=== PATIENT | male | born 1990 | race Caucasian/White ===

== ENCOUNTER 2017-07-22 17:45 | Emergency (ER) | payer SELFPAY ==
[~2017-07-22] VITALS: Ht 175.3 cm; Wt 70.0 kg
[2017-07-22 18:31] VITALS: BP 125/73; PULSE 101; RESP 18; TEMP 98.7; O2SAT 100
[2017-07-22 18:41] LABS: BASOPHIL # 0.1 TH/MM3 (0-0.2); BASOPHIL % 0.8 % (0.0-2.0); BILIRUBIN, URINE NEG (NEG); BLOOD, URINE NEG (NEG); EOSINOPHIL # 0.2 TH/MM3 (0-0.4); EOSINOPHIL % 2.5 % (0.0-4.0); GLUCOSE,URINE NEG (NEG); HEMATOCRIT 50.6 % (39.0-51.0); HEMOGLOBIN 17.4 GM/DL (13.0-17.0); KETONE, URINE NEG (NEG); LYMPH % 27.8 % (9.0-44.0); LYMPHOCYTE # 1.9 TH/MM3 (1.0-4.8); MEAN CELL VOLUME 97.6 FL (80.0-100.0); MEAN CORPUSCULAR HEMOGLOBIN 33.5 PG (27.0-34.0); MEAN CORPUSCULAR HGB CONC 34.3 % (32.0-36.0); MEAN PLATELET VOLUME 8.2 FL (7.0-11.0); MONO % 9.4 % (0.0-8.0); MONOCYTE # 0.6 TH/MM3 (0-0.9); NEUT % 59.5 % (16.0-70.0); NITRITE,URINE NEG (NEG); PLATELET COUNT 196 TH/MM3 (150-450); RED BLOOD COUNT 5.18 MIL/MM3 (4.50-5.90); RED CELL DISTRIBUTION WIDTH 14.8 % (11.6-17.2); SQUAMOUS EPITHELIAL CELL URINE <1 /hpf (0-5); URINE COLOR COLORLESS (YELLW/STRAW); URINE LEUKOCYTE ESTERASE NEG (NEG); WHITE BLOOD COUNT 6.7 TH/MM3 (4.0-11.0)
[2017-07-22 18:51] LABS: PROTHROMBIN TIME - PATIENT 10.2 SEC (9.8-11.6)
--- NOTE | 2017-07-22 18:59 | PD ---
HPI Chief Complaint: Alcohol/Drug Intoxication Time Seen by Provider: 18:07 Travel History International Travel<30 days: No Contact w/Intl Traveler<30days: No History of Present Illness HPI 26-year-old male presents to the ED via EMS for evaluation of intoxication. EMS was called on scene by type bar and segment assembler who stated patient became belligerent. On arrival patient is alert, combative. He endorses drinking alcohol today, does not characterize the amount. He provides his father's phone number. He is unable/unwilling to provide any other meaningful history. PFSH Past Medical History ?: Not Social History Alcohol Use: Yes Tobacco Use: No Substance Use: No Review of Systems Except as stated in HPI: all other systems reviewed are Neg Physical Exam Exam Limitations: Intoxication Narrative GENERAL: Well-nourished, well-developed white male in no acute distress. SKIN: Focused skin assessment warm/dry. No outward signs of trauma. HEAD: Normocephalic. No tenderness to palpation of the skull bones. No raccoon eyes. No hemotympanum. EYES: No scleral icterus. No injection or drainage. NECK: Supple, trachea midline. No JVD or lymphadenopathy. No midline tenderness. CARDIOVASCULAR: Regular rate and rhythm without murmurs, gallops, or rubs. RESPIRATORY: Breath sounds clear and equal bilaterally. No accessory muscle use. GASTROINTESTINAL: Abdomen soft, non-tender, nondistended. Active bowel sounds. MUSCULOSKELETAL: No cyanosis, or edema. 5/5 strength in all extremities. Moves extremities spontaneously. BACK: Nontender without obvious deformity. No CVA tenderness. Data Data Last Documented VS Vital Signs Date Time Temp Pulse Resp B/P (MAP) Pulse Ox O2 Delivery O2 Flow Rate FiO2 07/22/17 19:25 104 17 110/64 (79) 94 Nasal Cannula 2.00 07/22/17 18:31 98.7 Orders Orders Alcohol (Ethanol) (07/22/17 18:06) Complete Blood Count With Diff (07/22/17 18:06) Comprehensive Metabolic Panel (07/22/17 18:06) Prothrombin Time / Inr (Pt) (07/22/17 18:06) Act Partial Throm Time (Ptt) (07/22/17 18:06) Urinalysis - C+S If Indicated (07/22/17 18:06) Restraints Non-Violent MARKY.Q3H (07/22/17 18:21) Oximetry (07/22/17 19:30) Labs Laboratory Tests Test 07/22/17 18:20 White Blood Count 6.7 TH/MM3 Red Blood Count 5.18 MIL/MM3 Hemoglobin 17.4 GM/DL Hematocrit 50.6 % Mean Corpuscular Volume 97.6 FL Mean Corpuscular Hemoglobin 33.5 PG Mean Corpuscular Hemoglobin Concent 34.3 % Red Cell Distribution Width 14.8 % Platelet Count 196 TH/MM3 Mean Platelet Volume 8.2 FL Neutrophils (%) (Auto) 59.5 % Lymphocytes (%) (Auto) 27.8 % Monocytes (%) (Auto) 9.4 % Eosinophils (%) (Auto) 2.5 % Basophils (%) (Auto) 0.8 % Neutrophils # (Auto) 4.0 TH/MM3 Lymphocytes # (Auto) 1.9 TH/MM3 Monocytes # (Auto) 0.6 TH/MM3 Eosinophils # (Auto) 0.2 TH/MM3 Basophils # (Auto) 0.1 TH/MM3 CBC Comment DIFF FINAL Differential Comment Prothrombin Time 10.2 SEC Prothromb Time International Ratio 1.0 RATIO Activated Partial Thromboplast Time 29.2 SEC Urine Color COLORLESS Urine Turbidity CLEAR Urine pH 6.0 Urine Specific [place] 1.001 Urine Protein NEG mg/dL Urine Glucose (UA) NEG mg/dL Urine Ketones NEG mg/dL Urine Occult Blood NEG Urine Nitrite NEG Urine Bilirubin NEG Urine Urobilinogen LESS THAN 2.0 MG/DL Urine Leukocyte Esterase NEG Urine RBC LESS THAN 1 /hpf Urine WBC LESS THAN 1 /hpf Urine Squamous Epithelial Cells <1 /hpf Microscopic Urinalysis Comment CULT NOT INDICATED Blood Urea Nitrogen 5 MG/DL Creatinine 0.75 MG/DL Random Glucose 92 MG/DL Total Protein 8.5 GM/DL Albumin 4.0 GM/DL Calcium Level 8.6 MG/DL Alkaline Phosphatase 130 U/L Aspartate Amino Transf (AST/SGOT) 48 U/L Alanine Aminotransferase (ALT/SGPT) 51 U/L Total Bilirubin 0.3 MG/DL Sodium Level 142 MEQ/L Potassium Level 3.2 MEQ/L Chloride Level 108 MEQ/L Carbon Dioxide Level 25.5 MEQ/L Anion Gap 9 MEQ/L Estimat Glomerular Filtration Rate 125 ML/MIN Ethyl Alcohol Level 430 MG/DL [facility] Medical Decision Making Medical Screen Exam Complete: Yes Emergency Medical Condition: Yes Differential Diagnosis Acute alcohol intoxication versus dehydration versus autonomic derangement versus alcohol abuse versus other Narrative Course 26-year-old male presents to the ED via EMS for evaluation of intoxication. EMS was called on scene by type bar and segment assembler who stated patient became belligerent. On arrival patient is alert, combative. He endorses drinking alcohol today, does not characterize the amount. He provides his father's phone number. He is unable/unwilling to provide any other meaningful history. Vitals reviewed. No outward signs of trauma on exam. Patient is definitely strong, flailing and fighting against evaluation. He was placed in soft restraints. I spoke with the patient's father by phone. He states that the patient was with his girlfriend today. Father is over an hour away in [place]. He is unable to retrieve the patient. Alcohol level 430. No concerning abnormalities CBC, CMP , UA. Patient will be monitored in the ED, reevaluated periodically throughout the night. He will be discharged when he is able to demonstrate clinical sobriety. Diagnosis Primary Impression: Acute alcohol intoxication Qualified Codes: F10.929 - Alcohol use, unspecified with intoxication, unspecified Referrals: Primary Care Physician Additional Instructions: Rest, hydrate. Seek out patient treatment for alcohol abuse. Follow-up with her primary care provider. Return to the ED for any urgent or emergent medical condition. Thao Howell Jul 22, 2017 18:59
[2017-07-22 19:02] LABS: AST (GOT) 48 U/L (15-37); BICARBONATE 25.5 MEQ/L (21.0-32.0); BLOOD UREA NITROGEN 5 MG/DL (7-18); CALCIUM 8.6 MG/DL (8.5-10.1); CHLORIDE 108 MEQ/L (98-107); CREATININE 0.75 MG/DL (0.60-1.30); GLOMERULAR FILTRATION RATE 125 ML/MIN (>89); GLUCOSE,RANDOM 92 MG/DL (74-106); SODIUM (NA) 142 MEQ/L (136-145)
[2017-07-22 19:03] LABS: ALT (GPT) 51 U/L (12-78)
[2017-07-22 19:07] LABS: ALKALINE PHOSPHATASE 130 U/L (45-117); TOTAL BILIRUBIN ADULT 0.3 MG/DL (0.2-1.0); TOTAL PROTEIN 8.5 GM/DL (6.4-8.2)
[2017-07-22 19:25] VITALS: BP 110/64; PULSE 104; RESP 17; O2SAT 94
--- NOTE | 2017-07-22 22:47 | PD ---
Data Data Last Documented VS Vital Signs Date Time Temp Pulse Resp B/P (MAP) Pulse Ox O2 Delivery O2 Flow Rate FiO2 07/22/17 19:25 104 17 110/64 (79) 94 Nasal Cannula 2.00 07/22/17 18:31 98.7 Orders Orders Alcohol (Ethanol) (07/22/17 18:06) Complete Blood Count With Diff (07/22/17 18:06) Comprehensive Metabolic Panel (07/22/17 18:06) Prothrombin Time / Inr (Pt) (07/22/17 18:06) Act Partial Throm Time (Ptt) (07/22/17 18:06) Urinalysis - C+S If Indicated (07/22/17 18:06) Restraints Non-Violent MARKY.Q3H (07/22/17 18:21) Oximetry (07/22/17 19:30) Diet Regular Basic (07/23/17 Breakfast) Ed Discharge Order (07/22/17 23:00) Labs Laboratory Tests Test 07/22/17 18:20 White Blood Count 6.7 TH/MM3 Red Blood Count 5.18 MIL/MM3 Hemoglobin 17.4 GM/DL Hematocrit 50.6 % Mean Corpuscular Volume 97.6 FL Mean Corpuscular Hemoglobin 33.5 PG Mean Corpuscular Hemoglobin Concent 34.3 % Red Cell Distribution Width 14.8 % Platelet Count 196 TH/MM3 Mean Platelet Volume 8.2 FL Neutrophils (%) (Auto) 59.5 % Lymphocytes (%) (Auto) 27.8 % Monocytes (%) (Auto) 9.4 % Eosinophils (%) (Auto) 2.5 % Basophils (%) (Auto) 0.8 % Neutrophils # (Auto) 4.0 TH/MM3 Lymphocytes # (Auto) 1.9 TH/MM3 Monocytes # (Auto) 0.6 TH/MM3 Eosinophils # (Auto) 0.2 TH/MM3 Basophils # (Auto) 0.1 TH/MM3 CBC Comment DIFF FINAL Differential Comment Prothrombin Time 10.2 SEC Prothromb Time International Ratio 1.0 RATIO Activated Partial Thromboplast Time 29.2 SEC Urine Color COLORLESS Urine Turbidity CLEAR Urine pH 6.0 Urine Specific [place] 1.001 Urine Protein NEG mg/dL Urine Glucose (UA) NEG mg/dL Urine Ketones NEG mg/dL Urine Occult Blood NEG Urine Nitrite NEG Urine Bilirubin NEG Urine Urobilinogen LESS THAN 2.0 MG/DL Urine Leukocyte Esterase NEG Urine RBC LESS THAN 1 /hpf Urine WBC LESS THAN 1 /hpf Urine Squamous Epithelial Cells <1 /hpf Microscopic Urinalysis Comment CULT NOT INDICATED Blood Urea Nitrogen 5 MG/DL Creatinine 0.75 MG/DL Random Glucose 92 MG/DL Total Protein 8.5 GM/DL Albumin 4.0 GM/DL Calcium Level 8.6 MG/DL Alkaline Phosphatase 130 U/L Aspartate Amino Transf (AST/SGOT) 48 U/L Alanine Aminotransferase (ALT/SGPT) 51 U/L Total Bilirubin 0.3 MG/DL Sodium Level 142 MEQ/L Potassium Level 3.2 MEQ/L Chloride Level 108 MEQ/L Carbon Dioxide Level 25.5 MEQ/L Anion Gap 9 MEQ/L Estimat Glomerular Filtration Rate 125 ML/MIN Ethyl Alcohol Level 430 MG/DL [facility] Medical Record Reviewed: Yes Supervised Visit with BENJA: Yes Narrative Course CBC & BMP Diagram 07/22/17 18:20 Total Protein 8.5 H, Albumin 4.0, Calcium Level 8.6, Alkaline Phosphatase 130 H , Aspartate Amino Transf (AST/SGOT) 48 H, Alanine Aminotransferase (ALT/SGPT) 51 , Total Bilirubin 0.3 EtOH 430 UA: no UTI Pt ambulatory in the ED with steady and normal gait as of 1045pm. Patient speaking sentences. Speech, memory and mentation normal. Pt can serially subtract 3s from 10 to negative 2. Pt can spell world backwards. Alcohol level is elevated however pt is clinically sober. Pt is clinically safe for discharge home. Diagnosis Primary Impression: Acute alcohol intoxication Qualified Codes: F10.929 - Alcohol use, unspecified with intoxication, unspecified Additional Impression: Hypokalemia Referrals: Primary Care Physician Additional Instruction: Rest, hydrate. Seek out patient treatment for alcohol abuse. Follow-up with her primary care provider. Return to the ED for any urgent or emergent medical condition. Med/Other Pt SpecificInfo: No Change to Meds Disposition: 01 DISCHARGE HOME Condition: Stable [facility] Stephenson MD Jul 22, 2017 22:46
== END 2017-07-23 00:35 | disposition home or self-care (01) ==
LOC: NEPC 17:45
DX: F10.929 Alcohol use, unspecified with intoxication, unspecified (principal); Y90.8 Blood alcohol level of 240 mg/100 ml or more
CPT/HCPCS: 80053; 80307; 81001; 85025; 85610; 85730; 99285